=== PATIENT | male | born 2000 | race Caucasian/White ===

== ENCOUNTER 2021-12-23 20:26 | Emergency (ER) | payer OTHER ==
[~2021-12-23] VITALS: Ht 165.1 cm; Wt 77.1 kg
[2021-12-23 21:04] VITALS: BP 122/84
--- NOTE | 2021-12-24 00:55 | NUR ---
Dr. Worrell examining patient.
[2021-12-24] MEDS ORDERED: FLUORESCEIN OPTH STRIP 1 MG OP ONE (01:00)
[2021-12-24] MEDS ORDERED: TETRACAINE HCL/PF 0.5% OPTH 4 ML BTL OP ONE (01:25)
[2021-12-24] MEDS ORDERED: TETRACAINE HCL/PF 0.5% OPTH 4 ML BTL ONE (01:27)
[2021-12-24] MEDS ORDERED: OFLO5SOL27 OT (01:34)
[2021-12-24] MEDS ORDERED: IBUP-1842 PO (01:35)
[2021-12-24] MEDS ORDERED: OFLO5SOL27 OP (01:35)
[2021-12-24 01:46] VITALS: BP 124/75
--- NOTE | 2021-12-24 01:46 | NUR ---
Patient discharged with v/s stable. Written and verbal after care instructions given and explained for Corneal Abrasion. Patient alert, oriented and verbalized understanding of instructions. Ambulatory with steady gait. All questions addressed prior to discharge. ID band removed. Patient advised to follow up with PMD. Rx of Ibuprofen and Ofloxacin given. Patient educated on indication of medication including possible reaction and side effects. Opportunity to ask questions provided and answered.
== END 2021-12-24 01:46 | disposition home or self-care (01) ==
LOC: MED 20:26
DX: S05.02XA Injury of conjunctiva and corneal abrasion without foreign body, left eye, initial encounter (principal); X58.XXXA Exposure to other specified factors, initial encounter; Y93.89 Activity, other specified; Y92.89 Other specified places as the place of occurrence of the external cause; Y99.8 Other external cause status
CPT/HCPCS: 99283

== ENCOUNTER 2022-02-23 16:17 | Emergency (ER) | payer OTHER ==
[~2022-02-23] VITALS: Ht 165.1 cm; Wt 75.3 kg
[~2022-02-23 16:17] MED LIST: IBUP-1842 PO; OFLO5SOL27 OP
[2022-02-23 16:38] VITALS: BP 120/57
[2022-02-23] MEDS ORDERED: DICYCLOMINE HCL LIQUID 20 MG, ALUMINUM HYD/MAG/SIMETHICONE 30 ML, LIDOCAINE VISCOUS 2% ... PO ONE ×3 (17:45)
[2022-02-23] MEDS ORDERED: FAMOTIDINE 20 MG TAB PO ONE (17:45)
--- NOTE | 2022-02-23 18:59 | NUR ---
PT WALKED TO LOBBY
[2022-02-23 19:13] LABS: BASOPHILS % (AUTO) 0.3 % (0.0-2.0); EOSINOPHILS # (AUTO) 0.1 K/uL (0-0.4); EOSINOPHILS % (AUTO) 1.8 % (0.0-4.0); HEMATOCRIT 40.7 % (36-52); HEMOGLOBIN 14.4 g/dL (12.0-18.0); LYMPHOCYTES # (AUTO) 0.9 K/uL (2.0-11.5); LYMPHOCYTES % (AUTO) 11.9 % (20.5-51.1); MEAN CORPUSCULAR HEMOGLOBIN 33 pg (27-31); MEAN CORPUSCULAR HGB CONC 35 g/dL (33-37); MEAN CORPUSCULAR VOLUME 92.3 fL (80-94); MONOCYTES # (AUTO) 0.7 K/uL (0.8-1.0); MONOCYTES % (AUTO) 8.2 % (1.7-9.3); NEUTROPHILS # (AUTO) 6.2 K/uL (1.8-7.7); NEUTROPHILS % (AUTO) 77.8 % (42.2-75.2); PLATELET COUNT (AUTO) 258 K/uL (140-450); RED BLOOD CELL COUNT(AUTO) 4.41 MIL/uL (4.20-6.10); RED CELL DISTRIBUTION WIDTH 13.1 % (11.6-13.7)
[2022-02-23 19:53] LABS: ALBUMIN 3.6 g/dL (3.4-5.0); ANION GAP 14.4 (8-16); CARBON DIOXIDE 27.3 mmol/L (21-32); CREATININE 0.9 mg/dL (0.6-1.3); POTASSIUM 3.7 mmol/L (3.5-5.1); TOTAL BILIRUBIN 0.3 mg/dL (0.0-1.0)
[2022-02-23] MEDS ORDERED: FAMO-90 PO (20:59)
[2022-02-23] MEDS ORDERED: FAMOTIDINE 20 MG TAB ONE (22:28)
[2022-02-23] MEDS ORDERED: ALUMINUM HYD/MAG/SIMETHICONE 30 ML UDC ONE (22:28)
[2022-02-23] MEDS ORDERED: DICYCLOMINE HCL LIQUID 10 MG/5 ML UDC ONE (22:29)
[2022-02-23 22:35] VITALS: BP 120/57
--- NOTE | 2022-02-23 22:35 | NUR ---
Patient discharged with v/s stable. Written and verbal after care instructions given and explained. Patient alert, oriented and verbalized understanding of instructions. Ambulatory with steady gait. All questions addressed prior to discharge. ID band removed. Patient advised to follow up with PMD. Rx of FAMOTIDINE given. Patient educated on indication of medication including possible reaction and side effects. Opportunity to ask questions provided and answered.
== END 2022-02-23 22:35 | disposition home or self-care (01) ==
LOC: MED 16:17
DX: K29.70 Gastritis, unspecified, without bleeding (principal)
CPT/HCPCS: 36415; 76705; 80053; 83605; 83690; 85025; 99284; Q0092

== ENCOUNTER 2022-11-13 20:07 | Emergency (ER) | payer OTHER ==
[~2022-11-13] VITALS: Ht 165.1 cm; Wt 81.6 kg
[~2022-11-13 20:07] MED LIST changes: +FAMO-90 PO
[2022-11-13 20:09] VITALS: BP 157/80; PULSE 102; RESP 24; TEMP 97.4; O2SAT 100
[2022-11-13] MEDS ORDERED: NACL 0.9% 1,000 ML IV ONE (20:35)
[2022-11-13] MEDS ORDERED: LORazepam 2 MG/ML VIAL IVP ONE (20:35)
[2022-11-13 21:02] LABS: BASOPHILS % (AUTO) 0.3 % (0.0-2.0); EOSINOPHILS % (AUTO) 0.2 % (0.0-4.0); HEMATOCRIT 43.6 % (36-52); HEMOGLOBIN 15.1 g/dL (12.0-18.0); LYMPHOCYTES # (AUTO) 0.7 K/uL (2.0-11.5); LYMPHOCYTES % (AUTO) 14.5 % (20.5-51.1); MEAN CORPUSCULAR HEMOGLOBIN 32 pg (27-31); MEAN CORPUSCULAR HGB CONC 35 g/dL (33-37); MONOCYTES # (AUTO) 0.3 K/uL (0.8-1.0); MONOCYTES % (AUTO) 5.3 % (1.7-9.3); NEUTROPHILS % (AUTO) 79.7 % (42.2-75.2); PLATELET COUNT (AUTO) 255 K/uL (140-450); RED BLOOD CELL COUNT(AUTO) 4.68 MIL/uL (4.20-6.10); RED CELL DISTRIBUTION WIDTH 12.7 % (11.6-13.7)
[2022-11-13 21:50] LABS: ALBUMIN 3.9 g/dL (3.4-5.0); ANION GAP 17.8 (8-16); CALCIUM 9.2 mg/dL (8.5-10.1); POTASSIUM 3.8 mmol/L (3.5-5.1); TOTAL BILIRUBIN 0.5 mg/dL (0.0-1.0); TOTAL PROTEIN, SERUM 7.8 g/dL (6.4-8.2)
[2022-11-13] MEDS ORDERED: ATA25 PO (21:58)
[2022-11-13 22:25] LABS: AMPHETAMINE, URINE NEGATIVE ng/ml (NEG <=1000); BARBITURATE, URINE NEGATIVE ng/ml (NEG <=200); BENZODIAZEPINE, URINE NEGATIVE ng/mL (NEG <=200); CANNABINOID, URINE NEGATIVE ng/mL (NEG <=50); COCAINE, URINE NEGATIVE ng/mL (NEG <=300); OPIATE, URINE NEGATIVE ng/mL (NEG <=2000); PHENCYCLIDINE SCREEN,URINE NEGATIVE ng/mL (NEG <=25)
[2022-11-13 22:33] VITALS: BP 120/73; PULSE 109; RESP 19; O2SAT 98
== END 2022-11-13 22:34 | disposition home or self-care (01) ==
LOC: MED 20:07
DX: R07.9 Chest pain, unspecified (principal); F15.10 Other stimulant abuse, uncomplicated; R06.02 Shortness of breath; R20.0 Anesthesia of skin; Z79.899 Other long term (current) drug therapy
CPT/HCPCS: 36415; 71045; 80053; 80305; 83880; 84484; 85025; 96361; 96374; 99284; J2060; J7030; Q0092

== ENCOUNTER 2023-01-11 14:07 | Emergency (ER) | payer OTHER ==
[~2023-01-11] VITALS: Ht 165.1 cm; Wt 81.6 kg
[~2023-01-11 14:07] MED LIST changes: +ATA25 PO
[2023-01-11 14:31] VITALS: BP 110/73; PULSE 113; RESP 18; TEMP 98.9; O2SAT 100
[2023-01-11 15:24] LABS: AMPHETAMINE, URINE POSITIVE ng/ml (NEG <=1000); BARBITURATE, URINE NEGATIVE ng/ml (NEG <=200); BENZODIAZEPINE, URINE NEGATIVE ng/mL (NEG <=200); CANNABINOID, URINE NEGATIVE ng/mL (NEG <=50); COCAINE, URINE NEGATIVE ng/mL (NEG <=300); OPIATE, URINE NEGATIVE ng/mL (NEG <=2000); PHENCYCLIDINE SCREEN,URINE NEGATIVE ng/mL (NEG <=25)
[2023-01-11] MEDS ORDERED: LORazepam 1 MG TAB PO ONE (15:50)
[2023-01-11 16:07] VITALS: BP 110/73; PULSE 113; RESP 18; TEMP 98.9; O2SAT 100
[2023-01-11] MEDS ORDERED: ATA25 PO ×2 (16:14→16:57)
[2023-01-11] MEDS ORDERED: LIB25 PO ×2 (16:14→16:57)
== END 2023-01-11 16:19 | disposition home or self-care (01) ==
LOC: MED 14:07
DX: R07.89 Other chest pain (principal); F41.9 Anxiety disorder, unspecified; F15.10 Other stimulant abuse, uncomplicated; Z79.899 Other long term (current) drug therapy; Z79.1 Long term (current) use of non-steroidal anti-inflammatories (NSAID)
CPT/HCPCS: 80305; 93005; 99284

== ENCOUNTER 2023-02-12 12:46 | Emergency (ER) | payer OTHER ==
[~2023-02-12] VITALS: Ht 165.1 cm; Wt 74.8 kg
[~2023-02-12 12:46] MED LIST changes: +LIB25 PO
[2023-02-12 13:59] VITALS: BP 121/72; PULSE 84; RESP 18; TEMP 98.1; O2SAT 99
[2023-02-12] MEDS ORDERED: AMOX1TAB8 PO (18:32)
[2023-02-12] MEDS ORDERED: CYCL-711 PO (18:32)
[2023-02-12] MEDS ORDERED: IBUP-2213 PO (18:32)
[2023-02-12 18:39] VITALS: BP 121/72; PULSE 84; RESP 18; TEMP 98.1; O2SAT 99
== END 2023-02-12 18:39 | disposition home or self-care (01) ==
LOC: MED 12:46
DX: S16.1XXA Strain of muscle, fascia and tendon at neck level, initial encounter (principal); S00.83XA Contusion of other part of head, initial encounter; S80.01XA Contusion of right knee, initial encounter; F07.81 Postconcussional syndrome; J32.9 Chronic sinusitis, unspecified; V49.88XA Car occupant (driver) (passenger) injured in other specified transport accidents, initial encounter; Y93.89 Activity, other specified; Y92.89 Other specified places as the place of occurrence of the external cause; Y99.8 Other external cause status
CPT/HCPCS: 70450; 70486; 71101; 72125; 73562; 99284

== ENCOUNTER 2023-07-20 21:31 | Emergency (ER) | payer OTHER ==
[~2023-07-20] VITALS: Ht 165.1 cm; Wt 77.6 kg
[~2023-07-20 21:31] MED LIST changes: +AMOX1TAB8 PO; +CHLO-757 PO; +CYCL-711 PO; +IBUP-2213 PO; -LIB25 PO
[2023-07-20 21:46] VITALS: BP 117/72; PULSE 90; RESP 16; TEMP 98.4; O2SAT 99
[2023-07-20 22:48] LABS: BASOPHILS % (AUTO) 0.5 % (0.0-2.0); EOSINOPHILS # (AUTO) 0.3 K/uL (0-0.4); EOSINOPHILS % (AUTO) 3.6 % (0.0-4.0); HEMATOCRIT 40.8 % (36-52); HEMOGLOBIN 14.7 g/dL (12.0-18.0); LYMPHOCYTES # (AUTO) 2.1 K/uL (2.0-11.5); LYMPHOCYTES % (AUTO) 29.7 % (20.5-51.1); MEAN CORPUSCULAR HEMOGLOBIN 34 pg (27-31); MEAN CORPUSCULAR HGB CONC 36 g/dL (33-37); MEAN CORPUSCULAR VOLUME 94.7 fL (80-94); MONOCYTES # (AUTO) 0.7 K/uL (0.8-1.0); MONOCYTES % (AUTO) 9.9 % (1.7-9.3); NEUTROPHILS % (AUTO) 56.3 % (42.2-75.2); PLATELET COUNT (AUTO) 211 K/uL (140-450); RED CELL DISTRIBUTION WIDTH 12.6 % (11.6-13.7); WHITE BLOOD COUNT (AUTO) 7.1 K/uL (4.8-10.8)
[2023-07-20 23:09] LABS: ALBUMIN 3.7 g/dL (3.4-5.0); ANION GAP 14.2 (8-16); CALCIUM 8.9 mg/dL (8.5-10.1); CARBON DIOXIDE 25.6 mmol/L (21-32); CREATININE 0.9 mg/dL (0.6-1.3); POTASSIUM 3.8 mmol/L (3.5-5.1); TOTAL BILIRUBIN 0.6 mg/dL (0.0-1.0); TOTAL PROTEIN, SERUM 7.4 g/dL (6.4-8.2)
[2023-07-20] MEDS: MORPHINE SULFATE 4 MG/ML SYR IVP ONE (23:42)
[2023-07-21 03:27] VITALS: BP 125/74; PULSE 88; RESP 16; TEMP 98.2; O2SAT 99
== END 2023-07-21 03:27 | disposition home or self-care (01) ==
LOC: MED 21:31
DX: R10.11 Right upper quadrant pain (principal); R11.2 Nausea with vomiting, unspecified; Z79.899 Other long term (current) drug therapy
CPT/HCPCS: 36415; 74177; 76705; 80053; 83690; 85025; 96374; 99285; J2270; Q9967